=== PATIENT | male | born 1950 | race Asian ===

== ENCOUNTER 2019-03-15 12:49 | Emergency (ER) | payer MEDICARE, OTHER ==
[~2019-03-15] VITALS: Ht 165.1 cm; Wt 67.9 kg
[2019-03-15] MEDS ORDERED: NICARDipine 20 MG/DEXT,ISO-OSM 200 ML IV PRN (13:09)
[2019-03-15] MEDS ORDERED: LISI-661 PO (13:10)
[2019-03-15] MEDS ORDERED: ASPI-556 PO (13:10)
[2019-03-15 13:17] LABS: BASOPHILS % (AUTO) 0.9 % (0.0-2.0); EOSINOPHILS % (AUTO) 3.5 % (1.0-6.0); HEMATOCRIT 42.1 % (41-53); LYMPHOCYTES # (AUTO) 2.3 K/uL (1.0-4.8); MEAN CORPUSCULAR HGB CONC 30.8 G/dL (31.0-37.0); MEAN CORPUSCULAR VOLUME 68 fL (80-100); MONOCYTES # (AUTO) 0.7 K/uL (0.1-1.0); MONOCYTES % (AUTO) 8.5 % (2.0-9.0); NEUTROPHILS # (AUTO) 4.4 K/uL (1.8-7.7); NEUTROPHILS % (AUTO) 57.1 % (40.0-70.0); PLATELET COUNT (AUTO) 215 K/uL (150-450); RED BLOOD CELL COUNT(AUTO) 6.16 MIL/uL (4.50-5.90)
[2019-03-15 13:27] LABS: INR 0.9 (0.9-1.1); PROTHROMBIN TIME 9.8 SEC (9.4-11.6)
[2019-03-15 13:29] LABS: CALCIUM, TOTAL 9.5 mg/dL (8.8-10.5); CREATININE 1.27 mg/dL (0.60-1.30); POTASSIUM 3.9 mmol/L (3.5-5.1)
[2019-03-15 13:39] LABS: BILIRUBIN,TOTAL 0.6 mg/dL (0.1-1.0); TOTAL PROTEIN, SERUM 7.5 g/dL (6.4-8.2)
[2019-03-15 15:40] VITALS: BP 150/86
[2019-03-21] MEDS ORDERED: CARV6 PO (01:32)
[2019-03-21] MEDS ORDERED: LOSA50TA64 PO (01:32)
[2019-03-21] MEDS ORDERED: NIFE30TA5 PO (01:37)
[2019-03-21] MEDS ORDERED: PANT40TA25 PO (01:37)
[2019-03-21] MEDS ORDERED: ATOR40TA28 PO (01:37)
== END 2019-03-15 16:23 | disposition short-term general hospital (02) ==
LOC: EMS 12:51
DX: I63.9 Cerebral infarction, unspecified (principal); R53.1 Weakness; I10 Essential (primary) hypertension; Z79.82 Long term (current) use of aspirin
CPT/HCPCS: 93005; 96365; 96366; 99291

== ENCOUNTER → 2019-07-30 | Outpatient (CLI) | payer MEDICARE, OTHER ==
[~2019-07-30] MED LIST: ATOR40TA28 PO; CARV6 PO; FERR-89 PO; LANS15CA14 PO; LOSA50TA64 PO; NIFE30TA5 PO; TEMA7.5C17 PO
== END | disposition home or self-care (01) ==
LOC: RADPV 14:28
PROVIDERS: ATTEND Legal Medicine
DX: M19.011 Primary osteoarthritis, right shoulder (principal)

== ENCOUNTER → 2019-08-12 | Outpatient (CLI) | payer MEDICARE, OTHER | END | disposition home or self-care (01) | LOC: RADPV 13:38 | PROVIDERS: ATTEND Legal Medicine | DX: M19.90 Unspecified osteoarthritis, unspecified site (principal) | CPT/HCPCS: 73502 ==

== ENCOUNTER → 2021-01-19 | Outpatient (CLI) | payer MEDICARE, OTHER ==
[~2021-01-19] MED LIST changes: +LOSA50TA37 PO; -LOSA50TA64 PO
== END | disposition home or self-care (01) ==
LOC: RADPV 11:30
PROVIDERS: ATTEND Legal Medicine
DX: M47.816 Spondylosis without myelopathy or radiculopathy, lumbar region (principal); M47.814 Spondylosis without myelopathy or radiculopathy, thoracic region
CPT/HCPCS: 72100